=== PATIENT | male | born 1990 | race Caucasian/White ===

== ENCOUNTER 2017-01-27 21:01 | Inpatient (IN) | payer OTHER ==
[~2017-01-27] VITALS: Ht 185.4 cm; Wt 83.5 kg
--- NOTE | ~2017-01-27 | CON ---
[place], [place] REPORT OF CONSULTATION NAME: MERRITT ARROYO UNIT #: [id number] ROOM: [facility] DOCTOR: MELINDA MAGALLANES MD BIRTHDATE: [birth year] DOS: 01/28/2017 CARDIOLOGY CONSULT REASON FOR CONSULTATION: Elevated cardiac enzymes. HISTORY: The patient is a 26-year-old gentleman, presented to the Emergency Room after heroin overdose. Apparently, per records, he was washing his car during the day time, then later went and did some heroin and he did not remember a detailed history. Hence, most of the history was obtained from the medical records and he thought he passed out and his family brought to the hospital and he was eventually admitted to the hospital and found to have elevated cardiac enzymes and Cardiology was consulted. At the time of examination, the patient is alert, no distress. Denies any chest pain or shortness of breath, no PND, no palpitations. No orthopnea, no fever, chills. No nausea, vomiting, diarrhea. No visual symptoms. No tingling, numbness or weakness. REVIEW OF SYSTEMS: Review of the 8 systems negative except as described above. PAST MEDICAL HISTORY: History of depression. SOCIAL HISTORY: The patient does use marijuana and opioids, does smoke cigarettes. FAMILY HISTORY: No known family history of any premature coronary artery disease. ALLERGIES: The patient is allergic to CHLORPHENIRAMINE and PHENYLEPHRINE per records. HOME MEDICATIONS: Per charting are trazodone and Zoloft. SURGICAL HISTORY: No previous surgical history. PHYSICAL EXAMINATION: VITAL SIGNS: Blood pressure 140/80, pulse 92, respiratory rate 16. GENERAL: Alert, comfortable, in no acute distress. HEENT: Pupils are round and equal. No jaundice. Tongue was moist and pharynx was clear. NECK: Supple, no distended neck veins, no carotid bruit. CHEST: Symmetrical, nontender. LUNGS: Clear to auscultation bilaterally. HEART: Regular rhythm, no S3, no palpable thrills. ABDOMEN: Benign, nontender. Bowel sounds positive. EXTREMITIES: Showed no edema. Distal pulses are palpable. SKIN: Warm and dry. No cyanosis, no clubbing. NEUROLOGIC: The patient is alert, oriented. No focal neurologic deficit. RECTAL: Deferred. GENITOURINARY: Deferred. MUSCULOSKELETAL: No joint tenderness or swelling. [place], [place] REPORT OF CONSULTATION NAME: MERRITT ARROYO UNIT #: [id number] ROOM: [facility] DOCTOR: SONA SINGER,MELINDA BIRTHDATE: [birth year] REVIEW OF THE DIAGNOSTIC TESTS: EKG shows sinus rhythm. His labs, chemistry and imaging studies reviewed. His cardiac enzymes showed elevated troponin. His total CPK 974, 3248, 9081, 12,461. CK-MB respectively are from the second set at 25.4, 62, 78.8. His troponins are respectively 0.232, 0.663, 1.2, 1.2. IMPRESSION: 1. Elevated cardiac enzymes suggestive of rhabdomyolysis. The patient was chest pain free. EKG unremarkable. His CK index is negative. 2. Acute renal failure due to rhabdomyolysis. 3. Rhabdomyolysis. 4. Heroin overdose. 5. Tobacco use. RECOMMENDATIONS: 1. He denies any chest pain. Blood pressure and heart rates are stable. EKG unremarkable. Rhythm strips unremarkable. 2. No further cardiac testing at this time. 3. Continue IV fluids for his acute renal failure. Initially, he wanted to go home and I recommended another at least 24-48 hours in the hospital for adequate hydration and to monitor his renal function. 4. The patient strongly counseled to quit smoking and also to quit using drugs. 5. There is no family at bedside at the time of my examination. MELINDA MAGALLANES MD CM:CONSTR:REPORT OF CONSULTATION 0710 01/29/17 1238 interface
[~2017-01-27 21:01] MED LIST: CARBIDOPA/LEVOD1 TA1 PO; QUETIAPINE FUMA25 MG PO; TRAZODONE100 MG PO; ZOFRAN 4 MG ED2 TAB PO; ZOLOFT100 MG PO; ZOLOFT50 MG PO
[2017-01-27 21:02] VITALS: BP 124/79
[2017-01-27 21:31] LABS: HEMATOCRIT 45.2 % (42.0-52.0); HEMOGLOBIN 14.9 g/dl (14.0-18.0); MEAN CELL VOLUME 89.9 fl (80.0-94.0); MEAN CORPUSCULAR HGB 29.6 pg (27.0-31.0); MEAN PLATELET VOLUME 10.1 fl (9.6-12.3); PLATELET COUNT AUTOMATED 317 10*3/uL (130-400); RED BLOOD COUNT 5.03 10*6/uL (4.50-5.90); RED CELL DISTRI WIDTH 11.9 % (0-14.5); WHITE BLOOD COUNT 18.5 10*3/uL (4.8-10.8)
[2017-01-27 21:46] LABS: POTASSIUM 4.4 mmol/L (3.5-5.1)
[2017-01-27 21:52] LABS: CKMB 5.2 ng/ml (0.5-3.6); LYMPHOCYTE # 0.4 10*3/uL (1.3-4.4); MONOCYTE # 0.6 10*3/uL (0.1-1.0); NEUTROPHIL # 17.6 10*3/uL (2.3-7.9); NEUTROPHILS 95 % (47-73); TOTAL CELLS COUNTED 100 #CELLS
[2017-01-27 21:53] LABS: PLATELET SUFFICIENCY NORMAL (NORMAL)
[2017-01-27 22:05] VITALS: BP 114/80
[2017-01-27 22:36] LABS: TROPONIN I 0.232 ng/ml (<0.045)
[2017-01-28] VITALS: BP 98/65
[2017-01-28 00:07] LABS: LA>2 REFLEX 2 HR DRAW NOW
[2017-01-28 00:17] LABS: LA>2 RFLX FOLLOW UP AT 2 HRS 2.4 mmol/L (0.4-2.0)
[2017-01-28 00:29] LABS: CKMB 25.4 ng/ml (0.5-3.6)
[2017-01-28 00:30] LABS: TROPONIN I 0.663 ng/ml (<0.045)
[2017-01-28 01:00] LABS: BILIRUBIN NEGATIVE (NEGATIVE); BLOOD 3+ (NEGATIVE); CLARITY CLEAR (CLEAR); COLOR YELLOW (YELLOW); GLUCOSE 2+ (NEGATIVE); KETONE NEGATIVE (NEGATIVE); LEUKO ESTERASE NEGATIVE (NEGATIVE); NITRITE NEGATIVE (NEGATIVE); PROTEIN 2+ (NEGATIVE); SPECIFIC GRAVITY >= 1.030 (1.005-1.030); UROBILINOGEN 0.2 E.U./dl (0.2-1.0)
[2017-01-28 01:07] LABS: BACTERIA TRACE
[2017-01-28 01:13] LABS: URINE AMPHETAMINES < 1000 (1000ng/ml); URINE BARBITURATES < 200 (200ng/ml); URINE COCAINE > 300 (300ng/ml)
[2017-01-28 02:16] LABS: LA>2 REFLEX 4 HR DRAW NOW
[2017-01-28 04:00] VITALS: BP 92/52
[2017-01-28 06:43] LABS: BASO % 0.1 % (0.0-1.0); IG # 0.1 10*3/uL (0.0-0.1); LYMPH # 1.4 10*3/uL (1.3-4.4); LYMPH % 13.2 % (27.0-41.0); MEAN CELL VOLUME 89.1 fl (80.0-94.0); MEAN CORPUSCULAR HGB 30.5 pg (27.0-31.0); MEAN CORPUSCULAR HGB CONC 34.2 g/dl (33.0-37.0); MEAN PLATELET VOLUME 10.7 fl (9.6-12.3); MONO # 1.1 10*3/uL (0.1-1.0); MONO % 10.9 % (3.0-9.0); NEUT # 7.8 10*3/uL (2.3-7.9); NEUT % 75.3 % (47.0-73.0); PLATELET COUNT AUTOMATED 227 10*3/uL (130-400); RED BLOOD COUNT 3.84 10*6/uL (4.50-5.90); RED CELL DISTRI WIDTH 11.9 % (0-14.5); WHITE BLOOD COUNT 10.4 10*3/uL (4.8-10.8)
[2017-01-28 06:45] LABS: HEMATOCRIT 34.2 % (42.0-52.0); HEMOGLOBIN 11.7 g/dl (14.0-18.0)
[2017-01-28 07:11] LABS: CKMB 62.3 ng/ml (0.5-3.6); TROPONIN I 1.27 ng/ml (<0.045)
[2017-01-28 07:14] LABS: BUN 9 mg/dl (7-24); CARBON DIOXIDE 27 mmol/L (21-32); CHLORIDE 107 mmol/L (98-107); EST GLOM FILT AFRICAN AMERICAN > 60 ml/min; FREE T4 1.03 ng/dl (0.76-1.46); GLUCOSE 81 mg/dL (65-99); POTASSIUM 4.4 mmol/L (3.5-5.1); SODIUM 139 mmol/L (136-145)
[2017-01-28 07:20] LABS: THYROID STIM HORMONE (HS) 0.144 uIU/ml (0.358-4.75)
[2017-01-28 07:22] LABS: FOLIC ACID 10.32 ng/mL (>5.38)
[2017-01-28 08:00] VITALS: BP 102/62
[2017-01-28 12:00] VITALS: BP 121/75
[2017-01-28 12:06] LABS: CKMB 78.8 ng/ml (0.5-3.6); TROPONIN I 1.22 ng/ml (<0.045)
[2017-01-28 16:00] VITALS: BP 114/61
[2017-01-28 20:00] VITALS: BP 110/72
[2017-01-29] VITALS: BP 109/69
[2017-01-29 04:00] VITALS: BP 101/63
[2017-01-29 05:54] LABS: BASO % 0.5 % (0.0-1.0); EOS # 0.2 10*3/uL (0.0-0.4); EOS % 2.6 % (1.0-4.0); HEMATOCRIT 33.8 % (42.0-52.0); HEMOGLOBIN 11.5 g/dl (14.0-18.0); LYMPH # 1.5 10*3/uL (1.3-4.4); LYMPH % 23.7 % (27.0-41.0); MEAN CELL VOLUME 88.3 fl (80.0-94.0); MONO # 0.5 10*3/uL (0.1-1.0); MONO % 8.6 % (3.0-9.0); NEUT % 64.3 % (47.0-73.0); PLATELET COUNT AUTOMATED 191 10*3/uL (130-400); RED BLOOD COUNT 3.83 10*6/uL (4.50-5.90); RED CELL DISTRI WIDTH 11.9 % (0-14.5); WHITE BLOOD COUNT 6.2 10*3/uL (4.8-10.8)
[2017-01-29 06:05] LABS: BUN 6 mg/dl (7-24); CARBON DIOXIDE 28 mmol/L (21-32); CHLORIDE 111 mmol/L (98-107); EST GLOM FILT AFRICAN AMERICAN > 60 ml/min; GLUCOSE 88 mg/dL (65-99); POTASSIUM 3.9 mmol/L (3.5-5.1); SODIUM 144 mmol/L (136-145)
[2017-01-29 06:29] LABS: CPK 9202 U/L (39-308)
[2017-01-29 08:00] VITALS: BP 143/84
== END 2017-01-29 10:38 | disposition home or self-care (01) | DRG 917 ==
LOC: ED 21:01 → EDHOLD 22:44 → ICCU 22:57
PROVIDERS: Emergency Medicine; Hospitalist; Internal Medicine
DX: T40.1X1A Poisoning by heroin, accidental (unintentional), initial encounter (principal); N17.0 Acute kidney failure with tubular necrosis; R65.11 Systemic inflammatory response syndrome (SIRS) of non-infectious origin with acute organ dysfunction; M62.82 Rhabdomyolysis; E87.2 Acidosis; F11.23 Opioid dependence with withdrawal; E44.0 Moderate protein-calorie malnutrition; F17.200 Nicotine dependence, unspecified, uncomplicated; F12.10 Cannabis abuse, uncomplicated; F32.9 Major depressive disorder, single episode, unspecified; F13.10 Sedative, hypnotic or anxiolytic abuse, uncomplicated; Z88.8 Allergy status to other drugs, medicaments and biological substances; Y92.89 Other specified places as the place of occurrence of the external cause; Z79.899 Other long term (current) drug therapy; Z68.23 Body mass index [BMI] 23.0-23.9, adult